=== PATIENT | female | born 1940 | race Native Hawaiian/Other Pacific Islander ===

== ENCOUNTER 2017-07-31 12:15 | Outpatient (CLI) | payer OTHER | END 2017-07-31 13:15 | disposition home or self-care (01) | LOC: RAD 12:15 | DX: M25.561 Pain in right knee (principal) ==

== ENCOUNTER 2018-06-09 10:41 | Outpatient (CLI) | payer OTHER | END 2018-06-09 18:51 | disposition home or self-care (01) | LOC: LAB 10:41 | DX: Z47.1 Aftercare following joint replacement surgery (principal); I10 Essential (primary) hypertension; K21.9 Gastro-esophageal reflux disease without esophagitis; E03.9 Hypothyroidism, unspecified; D50.0 Iron deficiency anemia secondary to blood loss (chronic) | CPT/HCPCS: 85014; 85018 ==

== ENCOUNTER 2021-01-14 15:41 | Inpatient (IN) | payer OTHER ==
[2021-01-15 09:21] LABS: PLATELET COUNT 219 K/uL (152-353)
[2021-01-15 09:28] LABS: POTASSIUM 3.9 mmol/L (3.6-5.2)
== END 2021-01-29 15:46 | disposition still patient (30) ==
LOC: PAVC 15:41
PROVIDERS: ADMIT Internal Medicine; ATTEND Internal Medicine
DX: I48.91 Unspecified atrial fibrillation (principal); J18.9 Pneumonia, unspecified organism; M62.81 Muscle weakness (generalized); Z74.1 Need for assistance with personal care; R26.81 Unsteadiness on feet; R48.8 Other symbolic dysfunctions; Z95.2 Presence of prosthetic heart valve
CPT/HCPCS: 80053; 80061; 82306; 82607; 82728; 83540; 84443; 85027; 87081

== ENCOUNTER 2021-01-29 17:02 | Inpatient (IN) | payer OTHER | END 2021-02-06 07:30 | disposition home or self-care (01) | LOC: PAVC 17:02 | PROVIDERS: ADMIT Internal Medicine; ATTEND Internal Medicine | DX: I48.91 Unspecified atrial fibrillation (principal); J18.9 Pneumonia, unspecified organism; M62.81 Muscle weakness (generalized); Z74.1 Need for assistance with personal care; R26.81 Unsteadiness on feet; R48.8 Other symbolic dysfunctions; Z95.2 Presence of prosthetic heart valve ==

== ENCOUNTER 2021-02-20 13:00 | Inpatient (IN) | payer OTHER | END 2021-02-28 08:00 | disposition still patient (30) | LOC: PAVC 13:00 | PROVIDERS: ADMIT Internal Medicine; ATTEND Internal Medicine | DX: K57.92 Diverticulitis of intestine, part unspecified, without perforation or abscess without bleeding (principal); M62.81 Muscle weakness (generalized); Z74.1 Need for assistance with personal care; R26.81 Unsteadiness on feet; R13.12 Dysphagia, oropharyngeal phase ==

== ENCOUNTER 2021-02-28 09:00 | Inpatient (IN) | payer OTHER | END 2021-03-22 15:00 | disposition home or self-care (01) | LOC: PAVC 09:00 | PROVIDERS: ADMIT Internal Medicine; ATTEND Internal Medicine ==

== ENCOUNTER 2021-08-01 09:01 | Outpatient (CLI) | payer OTHER | END 2021-08-01 18:57 | disposition home or self-care (01) | LOC: MRI 09:01 | PROVIDERS: ATTEND Physician Assistant | DX: R53.1 Weakness (principal) ==

== ENCOUNTER 2021-10-07 09:51 | Outpatient (CLI) | payer OTHER | END 2021-10-07 18:57 | disposition home or self-care (01) | LOC: LABW 09:51 | PROVIDERS: ATTEND Physician Assistant | DX: M32.8 Other forms of systemic lupus erythematosus (principal) | CPT/HCPCS: 36415; 86140; 86160; 86225 ==

== ENCOUNTER 2022-06-12 13:44 | Outpatient (CLI) | payer OTHER | END 2022-06-12 22:09 | disposition home or self-care (01) | LOC: MAMMO 13:44 | PROVIDERS: ATTEND Physician Assistant | DX: Z12.31 Encounter for screening mammogram for malignant neoplasm of breast (principal) ==

== ENCOUNTER 2023-10-03 13:58 | Inpatient (IN) | payer OTHER ==
[~2023-10-03] VITALS: Ht 157.5 cm; Wt 66.3 kg
[2023-10-03 14:04] VITALS: BP 175/111; TEMP 97.7
[2023-10-03] MEDS ORDERED: SODIUM CHLORIDE 0.9% 1,000 ML IV ONE ×2 (14:19→14:27)
[2023-10-03 14:48] LABS: PLATELET COUNT 247 K/uL (152-353)
[2023-10-03 14:52] LABS: POTASSIUM 4.8 mmol/L (3.6-5.2)
[2023-10-03 15:00] VITALS: BP 181/111
[2023-10-03 16:00] VITALS: BP 219/109
[2023-10-03] MEDS ORDERED: SODIUM CHLORIDE 0.9% 1,000 ML IV SCH (17:50)
[2023-10-03] MEDS ORDERED: HYDRALAZINE HCL 10 MG IVP PRN (17:51)
[2023-10-03 18:22] VITALS: BP 180/100; TEMP 98; Ht 157.5 cm; Wt 66.3 kg
[2023-10-03] MEDS ORDERED: HYDRALAZINE HCL 20 MG INJ IV PRN (18:45)
[2023-10-03] MEDS ORDERED: CLOPIDOGREL75 MG PO (18:59)
[2023-10-03] MEDS ORDERED: DULOXETINE HCL30 MG PO (19:00)
[2023-10-03] MEDS ORDERED: ELIQUIS5 MG PO (19:01)
[2023-10-03] MEDS ORDERED: HYDRALAZINE25 MG PO (19:01)
[2023-10-03] MEDS ORDERED: HYDROCHLOROT12.5 M1 PO (19:02)
[2023-10-03] MEDS ORDERED: HYDR200T3 PO (19:03)
[2023-10-03] MEDS ORDERED: LEVO0.0218 PO (19:04)
[2023-10-03] MEDS ORDERED: BENICAR40 MG PO (19:05)
[2023-10-03] MEDS ORDERED: PANTOPRAZOLE SO40 M1 PO (19:06)
[2023-10-03] MEDS ORDERED: SOTALOL HYDROCH80 MG PO (19:07)
[2023-10-03 20:00] VITALS: BP 180/100; TEMP 98
[2023-10-04] VITALS (7 sets, daily range): BP systolic 121–190; BP diastolic 36–97; TEMP 97.4–99
[2023-10-04 05:05] LABS: PLATELET COUNT 201 K/uL (152-353)
[2023-10-04 06:00] LABS: POTASSIUM 3.1 mmol/L (3.6-5.2)
[2023-10-04] MEDS ORDERED: DULOXETINE HCL 30 MG CAP PO SCH (09:00)
[2023-10-04] MEDS ORDERED: HYDRALAZINE HCL 25 MG TAB PO SCH (09:00)
[2023-10-04] MEDS ORDERED: CLOPIDOGREL BISULFATE 75 MG TAB PO SCH (09:00)
[2023-10-04] MEDS ORDERED: SOTALOL HCL 80 MG TAB PO SCH (09:00)
[2023-10-04] MEDS ORDERED: PANTOPRAZOLE SODIUM 40 MG TAB PO SCH ×2 (09:00)
[2023-10-04] MEDS ORDERED: [UNRECOGNIZED DRUG - OTHER] PO SCH (09:00)
[2023-10-04] MEDS ORDERED: HYDROCHLOROTHIAZIDE 25 MG TAB PO SCH (09:00)
[2023-10-04] MEDS ORDERED: ENOXAPARIN SODIUM 40 MG SC SCH (09:00)
[2023-10-04] MEDS ORDERED: HYDROXYCHLOROQUINE 200 MG TAB PO SCH (09:00)
[2023-10-04] MEDS ORDERED: LEVOTHYROXINE 50 MCG PO SCH (09:00)
[2023-10-05 00:01] VITALS: BP 113/55; TEMP 99.1
[2023-10-05 04:00] VITALS: BP 163/88; TEMP 98.9
[2023-10-05 05:19] LABS: PLATELET COUNT 197 K/uL (152-353)
[2023-10-05 05:35] LABS: POTASSIUM 2.9 mmol/L (3.6-5.2)
[2023-10-05 08:14] VITALS: BP 174/80; TEMP 98.6
[2023-10-05] MEDS ORDERED: POTASSIUM CHL 20 MEQ TAB PO SCH (10:00)
[2023-10-05 12:00] VITALS: BP 171/78; TEMP 98
[2023-10-05 15:42] VITALS: BP 162/89; TEMP 99
[2023-10-05 20:00] VITALS: BP 139/78; TEMP 98.5
[2023-10-06] VITALS: BP 170/86; TEMP 98.5
[2023-10-06 04:00] VITALS: BP 174/100; TEMP 98.7
[2023-10-06 08:00] VITALS: BP 162/79; TEMP 98.5
[2023-10-06 09:10] LABS: PLATELET COUNT 199 K/uL (152-353)
[2023-10-06] MEDS ORDERED: SODI1TAB PO (10:38)
[2023-10-06 16:00] VITALS: BP 160/72; TEMP 98.2
[2023-10-06 20:00] VITALS: BP 174/94; TEMP 98.7
[2023-10-07] VITALS: BP 197/109; TEMP 98.3
[2023-10-07] MEDS ORDERED: CLONIDINE HCL 0.1 MG TAB PO ONE (01:30)
[2023-10-07 04:00] VITALS: BP 154/85; TEMP 98.5
[2023-10-07 07:39] LABS: PLATELET COUNT 225 K/uL (152-353)
[2023-10-07 07:49] LABS: POTASSIUM 3.1 mmol/L (3.6-5.2)
[2023-10-07 08:00] VITALS: BP 164/94; TEMP 98.1
[2023-10-07] MEDS ORDERED: SOD CHLORIDE 0.9% IV SCH ×2 (10:00→11:15)
[2023-10-07] MEDS ORDERED: MAGNESIUM SULFATE HEPTAHYDRATE IV SCH ×2 (10:00→11:15)
[2023-10-07 12:00] VITALS: BP 148/80; TEMP 97.6
[2023-10-07] MEDS ORDERED: POTASSIUM CHLORIDE 40 MEQ in SODIUM CHLORIDE 500 ML IV ONE (13:00)
[2023-10-07] MEDS ORDERED: SODIUM CHLORIDE 1 GM TAB PO SCH (13:00)
[2023-10-07 16:00] VITALS: BP 132/79; TEMP 97.4
[2023-10-07] MEDS ORDERED: POTASSIUM CHLORIDE 20 MEQ in SODIUM CHLORIDE 0.9% 250 ML IV ONE (18:00)
[2023-10-07 20:00] VITALS: BP 142/76; TEMP 98.4
[2023-10-07 20:20] LABS: POTASSIUM 3.8 mmol/L (3.6-5.2)
[2023-10-07] MEDS ORDERED: MEGESTROL ACETATE 40 MG TAB PO SCH (21:00)
[2023-10-08] VITALS: BP 164/82; TEMP 98.2
[2023-10-08 04:00] VITALS: BP 140/68; TEMP 98.6
[2023-10-08 05:23] LABS: PLATELET COUNT 209 K/uL (152-353)
[2023-10-08 05:59] LABS: POTASSIUM 3.5 mmol/L (3.6-5.2)
[2023-10-08 08:00] VITALS: BP 181/105; TEMP 97.4
[2023-10-08] MEDS ORDERED: DULOXETINE HCL 30 MG CAP PO SCH (09:00)
[2023-10-08 12:00] VITALS: BP 140/92; TEMP 97.8
[2023-10-08] MEDS ORDERED: [UNRECOGNIZED DRUG - OTHER] IV ONE (12:00)
[2023-10-08] MEDS ORDERED: ASPIRIN 325 MG TAB PO SCH (12:00)
[2023-10-08] MEDS ORDERED: SPIRONOLACTONE 50 MG TAB PO SCH (13:00)
[2023-10-08 16:00] VITALS: BP 131/81; TEMP 98.7
[2023-10-08 20:00] VITALS: BP 149/82; TEMP 99
[2023-10-09] VITALS: BP 131/76; TEMP 99
[2023-10-09 04:00] VITALS: BP 172/95; TEMP 78
[2023-10-09 04:44] LABS: PLATELET COUNT 205 K/uL (152-353)
[2023-10-09 06:16] LABS: POTASSIUM 2.9 mmol/L (3.6-5.2)
[2023-10-09 08:00] VITALS: BP 178/92; TEMP 98.1
[2023-10-09] MEDS ORDERED: SOD CHLORIDE 0.9% IVPB ONE (10:00)
[2023-10-09] MEDS ORDERED: MAGNESIUM SULFATE HEPTAHYDRATE IVPB ONE (10:00)
[2023-10-09 12:00] VITALS: BP 147/79; TEMP 98
[2023-10-09] MEDS ORDERED: POTASSIUM CHLORIDE 40 MEQ in SODIUM CHLORIDE 500 ML IV ONE (14:00)
[2023-10-09 16:23] VITALS: BP 166/91; TEMP 97.8
[2023-10-09 20:00] VITALS: BP 188/97; TEMP 97.8
[2023-10-10] VITALS: BP 185/96; TEMP 97.9
[2023-10-10] MEDS ORDERED: HYDRALAZINE HCL 20 MG INJ INJ ONE (02:59)
[2023-10-10 04:00] VITALS: BP 156/93; TEMP 98
[2023-10-10 05:07] LABS: POTASSIUM 3.8 mmol/L (3.6-5.2)
[2023-10-10 06:16] LABS: PLATELET COUNT 232 K/uL (152-353)
[2023-10-10 08:00] VITALS: BP 164/74; TEMP 97.9
[2023-10-10 12:00] VITALS: BP 160/68; TEMP 98.1
[2023-10-10] MEDS ORDERED: MAGNESIUM OXIDE 400 MG TAB PO SCH (15:00)
[2023-10-10] MEDS ORDERED: LOSARTAN 50 MG TAB PO SCH (15:00)
[2023-10-10 16:00] VITALS: BP 167/78; TEMP 98.3
[2023-10-10] MEDS ORDERED: WHITE PETROLATUM OPTH SCH (16:00)
[2023-10-10] MEDS ORDERED: MINERAL OIL OPTH SCH (16:00)
[2023-10-10 20:00] VITALS: BP 172/96; TEMP 98.5
[2023-10-11] VITALS: BP 176/104; TEMP 98.7
[2023-10-11 04:00] VITALS: BP 187/97; TEMP 98.1
[2023-10-11 05:55] LABS: PLATELET COUNT 237 K/uL (152-353)
[2023-10-11 05:56] LABS: POTASSIUM 3.4 mmol/L (3.6-5.2)
[2023-10-11 08:00] VITALS: BP 184/99; TEMP 98.2
[2023-10-11] MEDS ORDERED: CLONIDINE HCL 0.1 MG TAB PO SCH (09:00)
[2023-10-11] MEDS ORDERED: POTASSIUM CHL 20 MEQ TAB PO SCH (11:00)
[2023-10-11 12:00] VITALS: BP 131/81; TEMP 98.20
[2023-10-11 16:00] VITALS: BP 113/86; TEMP 98.1
[2023-10-11 19:54] VITALS: BP 151/82; TEMP 98.4
[2023-10-12] VITALS (7 sets, daily range): BP systolic 147–195; BP diastolic 71–105; TEMP 97.8–98.5
[2023-10-12 05:11] LABS: PLATELET COUNT 235 K/uL (152-353)
[2023-10-12 05:36] LABS: POTASSIUM 4.1 mmol/L (3.6-5.2)
[2023-10-12] MEDS ORDERED: MAGNESIUM SULFATE HEPTAHYDRATE INJ ONE (08:46)
[2023-10-12] MEDS ORDERED: DULOXETINE HCL 30 MG CAP PO SCH (09:00)
[2023-10-12] MEDS ORDERED: MAGNESIUM SULFATE HEPTAHYDRATE IV SCH (10:00)
[2023-10-12] MEDS ORDERED: SOD CHLORIDE 0.9% IV SCH (10:00)
[2023-10-13 03:32] VITALS: BP 176/86; TEMP 98.5
[2023-10-13 04:37] LABS: POTASSIUM 4.5 mmol/L (3.6-5.2)
[2023-10-13 08:00] VITALS: BP 177/84; TEMP 98.2
[2023-10-13] MEDS ORDERED: CLONIDINE HCL 0.1 MG TAB PO SCH (09:00)
[2023-10-13] MEDS ORDERED: LOSARTAN 50 MG TAB PO SCH (09:00)
[2023-10-13] MEDS ORDERED: OLMESARTAN 40 MG PO SCH (09:00)
[2023-10-13 12:00] VITALS: BP 106/60; TEMP 98.1
[2023-10-13 16:00] VITALS: BP 120/66; TEMP 98.3
[2023-10-13 19:41] VITALS: BP 133/63; TEMP 98.3
[2023-10-14] VITALS: BP 134/85; TEMP 98.6
[2023-10-14 03:39] VITALS: BP 149/86; TEMP 97.9
[2023-10-14 08:11] VITALS: BP 174/81; TEMP 97.8
[2023-10-14] MEDS ORDERED: OLMESARTAN 40MG PO SCH (09:00)
[2023-10-14] MEDS ORDERED: SODI1TAB PO (10:56)
[2023-10-14] MEDS ORDERED: CLON0.1T16 PO (10:56)
[2023-10-14] MEDS ORDERED: SPIR50TA8 PO (10:56)
[2023-10-14] MEDS ORDERED: COATED ASPIRIN325 MG PO (10:56)
[2023-10-14 11:50] VITALS: BP 111/66; TEMP 98.5
== END 2023-10-14 13:30 | DRG 640 ==
LOC: ED 13:58 → MED/SURG 16:47
PROVIDERS: Family Medicine; Internal Medicine; ADMIT Internal Medicine Endocrinology, Diabetes & Metabolism; ATTEND Internal Medicine Endocrinology, Diabetes & Metabolism
DX: E87.1 Hypo-osmolality and hyponatremia (principal); I63.81 Other cerebral infarction due to occlusion or stenosis of small artery; R41.82 Altered mental status, unspecified; Z86.73 Personal history of transient ischemic attack (TIA), and cerebral infarction without residual deficits; I48.91 Unspecified atrial fibrillation; Z79.01 Long term (current) use of anticoagulants; I10 Essential (primary) hypertension; E03.8 Other specified hypothyroidism; K21.9 Gastro-esophageal reflux disease without esophagitis; E87.6 Hypokalemia; E83.42 Hypomagnesemia; R63.0 Anorexia; E86.0 Dehydration; R53.81 Other malaise; G47.00 Insomnia, unspecified; F32.A Depression, unspecified; G89.29 Other chronic pain; E87.8 Other disorders of electrolyte and fluid balance, not elsewhere classified; M54.2 Cervicalgia; Z68.26 Body mass index [BMI] 26.0-26.9, adult
CPT/HCPCS: 36415; 80048; 80053; 81002; 83690; 83735; 83880; 84100; 84484; 85027; 93005; 96360; 96361; 96374; 99283; 99284; J0360; J3475; J3480